=== PATIENT | male | born 1990 | race Caucasian/White ===

== ENCOUNTER → 2020-05-11 11:59 | Outpatient (CLI) | payer BC, SELFPAY ==
--- NOTE | 2020-05-11 12:10 | XR_ITS ---
PROCEDURE: XR ANKLE LT MIN 3V CLINICAL INDICATION: SPRAIN OF LEFT ANKLE Pain COMPARISON: No exams were available for comparison FINDINGS: Mild soft tissue swelling at the lateral malleolar region. No fracture or dislocation. IMPRESSION: Soft tissue swelling otherwise negative Dictated by: Maxwell Patel MD 05/11/2020 18:38 Maxwell Patel MD in [facility] 05/11/2020 18:38
== END ==
PROVIDERS: PCP Internal Medicine Adolescent Medicine; Visit Provider Internal Medicine Adolescent Medicine
DX: S93.402A Sprain of unspecified ligament of left ankle, initial encounter (principal)
CPT/HCPCS: 73610

== ENCOUNTER 2020-06-06 16:30 | Outpatient (RCR) | payer BC, SELFPAY ==
--- NOTE | 2020-05-20 10:16 | HMH.PTOPEV ---
PT Outpatient Evaluation Rehab PT Outpatient Evaluation Start: 05/20/20 09:36 Freq: Status: Active Protocol: Document 05/20/20 10:07 [facility] (Rec: 05/20/20 10:16 PHOVIVIANA [id number]) Electronically Signed By Jamal Powell, PT 05/20/20 10:07 Outpatient Therapy Subjective History Subjective History Pt is 29 yowm who presents with L ankle pain and swelling x ~ 2-3 wks after ankle sprain while playing basketball. X-rays were negative for fx. Pt reports pain with walking and increased edema with L LE in dependent position. He reports tenderness in the L Lateral ankle as well. PMH: HTN. Chief Complaint Pain,Stiff,Swelling Symptom Type Ache,Throb Symptoms Relieved By Rest/Positioning,Ice Symptoms Aggravated By Physical Activity,Walking Prior Functional Limitations None Current Functional Limitations Recreation Activity,Walking Symptom Description Constant but Variable Level of pain today (0-10) 6 Pain scale - at its worst (0-10) 6 Ankle/Foot Eval Gait Observation General Gait Pattern Observation Antalgic Gait Palpation Tenderness left Ankle/Foot Palpation Findings Tenderness ATF TTP positive PTF TTP negative CF TTP positive Deltoid ligament TTP negative ROM Ankle/Foot Dorsiflexion w/Knee Extended 0-5 Active Range Motion (degrees) Ankle/Foot Plantar Flexion Active Range 0-40 of Motion (degrees) Ankle/Foot Eversion Active Range of 0-15 Motion (degrees) Ankle/Foot Inversion Active Range of 0-30 Motion (degrees) Ankle/Foot ROM Limitations Pain MMT Ankle Dorsiflexion Strength Grade 4 Good Ankle Plantarflexion Strength Grade 4 Good Foot Eversion Strength Grade 4 Good Foot Inversion Strength Grade 4 Good Ankle Dorsiflexors Muscle Tone Normal Description Special Tests Ankle Anterior Drawer Test Negative Left,Negative Right Ankle Eversion Test Negative Left,Negative Right Talar Tilt Test Negative Right,Positive Left Ankle Inversion (supination) Test Negative Right,Positive Left Outpatient Therapy Assessment Impairments Problems/Impairmments Palpation Tenderness,Impaired Range of Motion,Impaired Strength,Impaired Endurance, Impaired Gait Pattern,Impaired Walking,Impaired Standing,
== END 2020-06-06 16:35 | disposition home or self-care (01) ==
LOC: PT 16:30
PROVIDERS: PCP Internal Medicine Adolescent Medicine; Visit Provider Internal Medicine Adolescent Medicine
DX: S93.402A Sprain of unspecified ligament of left ankle, initial encounter (principal)
CPT/HCPCS: 97010; 97014; 97016; 97033; 97035; 97110; 97112; 97140; 97163; 97760; G0283

== ENCOUNTER → 2022-04-28 07:45 | Outpatient (CLI) | payer BC, SELFPAY ==
--- NOTE | 2022-04-28 07:50 | US_ITS ---
FINAL REPORT CLINICAL HISTORY: ABD PAIN,DIARRHEA FINDINGS: Sonographic images of the right upper quadrant were obtained. The pancreas is obscured. The liver has increased echogenicity consistent with mild fatty infiltration. The gallbladder appears normal without evidence of gallstones.There is no evidence of biliary ductal dilatation.The common duct measures 3 mm. Limited images of the right kidney are unremarkable. IMPRESSION: Fatty liver. Otherwise unremarkable right upper quadrant ultrasound. Reviewed, Interpreted and Dictated by Daron Reed III, MD Transcribed by Kathy Rosas Authenticated and [facility]
== END ==
PROVIDERS: PCP Internal Medicine Adolescent Medicine; Visit Provider Nurse Practitioner Family
DX: R10.10 Upper abdominal pain, unspecified (principal); R11.10 Vomiting, unspecified; R19.7 Diarrhea, unspecified
CPT/HCPCS: 76705

== ENCOUNTER → 2022-12-25 11:20 | Outpatient (CLI) | payer BC, SELFPAY ==
[2022-12-25 12:12] LABS: Basophils % 0.5 % (0.1-2.0); Eosinophils # 0.2 K/mm3 (0.0-0.4); Hematocrit 45.1 % (42.0-52.0); Hemoglobin 14.9 g/dL (14.1-18.0); Lymphocytes % 28.7 % (10-50); Mean Corpuscular Hemoglobin 30.1 pg (27.0-31.2); Mean Corpuscular Volume 91.4 fl (80-94); Monocytes # 0.4 K/mm3 (0.1-1.0); Monocytes % 5.8 % (1.7-9.3); Neutrophils # 4.3 K/mm3 (1.8-7.8); Platelet Count 270 K/mm3 (142-424); Red Blood Count 4.94 M/mm3 (4.60-6.20); Red Cell Distribution Width 13.3 % (11.5-17.5); White Blood Count 6.9 K/mm3 (4.8-10.8)
[2022-12-25 12:20] LABS: Chloride 98 mmol/L (98-107)
[2022-12-25 12:21] LABS: Potassium 3.6 mmoL/L (3.5-5.1); Sodium 139 mmol/L (136-145)
[2022-12-25 12:23] LABS: Alanine Aminotransferase 33 U/L (12-78); Alkaline Phosphatase 44 U/L (38-126); Anion Gap 16.6 mEq/L (5-15); Aspartate Amino Transferase 32 U/L (17-59); Bilirubin,Total 0.7 mg/dl (0.2-1.3); Blood Urea Nitrogen 9 mg/dl (9-20); Carbon Dioxide 28 mmol/L (22.0-30.0); Estimated Glomerular Filt Rate 87 ml/min (>60); GFR (African American) 105 ML/MIN (>60)
[2022-12-25 12:24] LABS: Albumin Level 4.2 g/dl (3.5-5.0); Albumin/Globulin Ratio 1.6 (1.1-1.8); Calcium 8.8 mg/dl (8.4-10.2); Globulin 2.6 g/dL (1.3-3.2); Glucose 91 mg/dl (74-100); Total Protein,Serum 6.8 g/dl (6.3-8.2)
[2022-12-25 12:55] LABS: Erythrocyte Sedimentation Rate 7 mm/hr (0-15)
[2022-12-25 13:57] LABS: Adenovirus F 40/41, stool Not Detected (NotDetected); Astrovirus Not Detected (NotDetected); Campylobacter Not Detected (NotDetected); Clostridium Difficile A/B, PCR Not Detected (NotDetected); Cryptosporidium Not Detected (NotDetected); Cyclospora Cayetanesis Not Detected (NotDetected); Entamoeba histolytica Not Detected (NotDetected); Enteroaggregative E coli Not Detected (NotDetected); Enteropathogenic E coli Not Detected (NotDetected); Enterotoxigenic E coli Not Detected (NotDetected); Giardia lamblia Not Detected (NotDetected); Norovirus Not Detected (NotDetected); Plesimonas Shigalloides, PCR Not Detected (NotDetected); Rotavirus A Not Detected (NotDetected); Salmonella, PCR Not Detected (NotDetected); Sapovirus Not Detected (NotDetected); Shiga-like toxin E coli Not Detected (NotDetected); Shigella Enterovasive E coli Not Detected (NotDetected); Vibrio Cholerae Not Detected (NotDetected); Vibrio, PCR Not Detected (NotDetected); Yersinia Entercolitica, PCR Not Detected (NotDetected)
== END ==
PROVIDERS: PCP Nurse Practitioner Family; Visit Provider Nurse Practitioner Family
DX: R10.32 Left lower quadrant pain (principal); K52.9 Noninfective gastroenteritis and colitis, unspecified; R19.7 Diarrhea, unspecified
CPT/HCPCS: 36415; 80053; 85025; 85651; 87507

== ENCOUNTER 2024-01-30 05:38 | Emergency (ER) | payer BC, SELFPAY ==
[2024-01-30] VITALS (7 sets, daily range): BP systolic 119–141; BP diastolic 71–90; PULSE 102–110; RESP 16–18; TEMP 36.7; O2SAT 94–97; BMI 30.8
--- NOTE | 2024-01-30 05:46 | CT_ITS ---
PROCEDURE INFORMATION: Exam: CT Abdomen And Pelvis With Contrast Exam date and time: 01/30/2024 6:07 AM Age: 33 years old Clinical indication: Abdominal pain; Additional info: Rlq abd pain, ttp, emesis TECHNIQUE: Imaging protocol: Computed tomography of the abdomen and pelvis with contrast. Radiation optimization: All CT scans at this facility use at least one of these dose optimization techniques: automated exposure control; mA and/or kV adjustment per patient size (includes targeted exams where dose is matched to clinical indication); or iterative reconstruction. Contrast material: ISOVUE; Contrast volume: 75 ml; Contrast route: IV; COMPARISON: US ABDOMEN LIMITED 04/28/2022 8:02 AM FINDINGS: Lungs: Calcified granuloma in the right lower lobe. The lung bases are otherwise clear. Diaphragm: Small hiatal hernia. Liver: Normal. No mass. Gallbladder and bile ducts: Normal. No calcified stones. No ductal dilation. Pancreas: Normal. No ductal dilation. Spleen: Normal. No splenomegaly. Adrenal glands: Normal. No mass. Kidneys and ureters: Normal. No hydronephrosis. Stomach and bowel: Multiple loops of fluid filled, nondilated small bowel and colon. Subtle hyperemic bowel hope. Overall findings are suspicious for gastroenteritis. Appendix: The appendix is visualized and appears normal. Intraperitoneal space: Unremarkable. No free air. No significant fluid collection. Vasculature: Unremarkable. No abdominal aortic aneurysm. Lymph nodes: Unremarkable. No enlarged lymph nodes. Urinary bladder: Unremarkable as visualized. Reproductive: Unremarkable as visualized. Bones/joints: Unremarkable. No acute fracture. Soft tissues: Gynecomastia. IMPRESSION: 1. The appendix is visualized and appears normal. 2. Multiple loops of fluid filled, nondilated small bowel and colon. Subtle hyperemic bowel hope. Overall findings are suspicious for gastroenteritis.
--- NOTE | 2024-01-30 05:46 | ED_ITS ---
Discharge Plan Disposition Patient Disposition: Home, Self-Care Prescriptions Prescriptions: New ondansetron 4 mg tablet,disintegrating 4 mg PO Q8H PRN (Reason: nausea and vomiting) 4 Days Qty: 12 0RF No Action allopurinol 100 mg Tablet 100 mg PO BID colchicine 0.6 mg Tablet 0.6 mg PO DAILYP PRN (Reason: gout) Activity Restrictions/Add. Instructions Additional Instructions/Restrictions: At this time it was felt you are safe to be discharged home. If new or worsening symptoms please do not hesitate to return the emergency department. Please take your medications as prescribed. Clinical Impressions Clinical Impression: Gastroenteritis Instructions Patient Instructions: DI for Viral Gastroenteritis -- Adult Discharge ED Provider: Delta Roberson General Adult HPI <Se Tiwari MD - Last Filed: 01/30/24 06:50> General Chief complaint: Nausea/Vomiting/Diarrhea Stated complaint: nausea/vomiting Time Seen by Provider: 01/30/24 05:39 History of Present Illness HPI narrative: 33-year-old male with history of gout and is currently on allopurinol and colchicine presents to the ER for concerns of abdominal pain and emesis that started last night around 11 PM. Patient called EMS due to his symptoms. He was able to ambulate out to EMS. During transport they administered Zofran which reportedly took his nausea from an 8 down to a 6. Patient reports multiple episodes of emesis, nonbloody, nonbilious. He reports his diarrhea has not been bloody or melanotic. No known fevers. No known drug allergies. He vapes but denies alcohol or illicit drug use. No history of abdominal surgeries. Related Data Home Medications Medication Instructions Recorded Confirmed allopurinol 100 mg tablet 100 mg PO BID 01/30/24 01/30/24 colchicine 0.6 mg tablet 0.6 mg PO DAILYP PRN gout 01/30/24 01/30/24 Previous Rx's Medication Instructions Recorded ondansetron 4 mg disintegrating 4 mg PO Q8H PRN nausea and 01/30/24 tablet vomiting 4 days #12 tabs Allergies Allergy/AdvReac Type Severity Reaction Status Date / Time No Known Allergies Allergy Unverified 08/03/17 15:11 PFSH <Se Tiwari MD - Last Filed: 01/30/24 06:50> [facility] Disclaimer: The information contained in this section may have been updated after the patient was seen, as this information can be updated by other users. Social History (Updated 01/30/24 @ 06:50 by Se Tiwari MD) Smoking Status: Current every day smoker alcohol intake: never current occupational status: other Travel in the last 8 weeks: None <Se Tiwari MD - Last Filed: 01/30/24 06:50> ROS Obtained: Yes All systems reviewed & no additional complaints except as documented Constitutional Constitutional: Denies chills, Denies fever(s), Denies headache(s) and Denies weakness Eyes Eyes: Denies change in vision ENT Ears, Nose, Mouth, and Throat: Denies dizziness, Denies headache(s), Denies nasal congestion and Denies sore throat Cardiovascular Cardiovascular: Denies chest pain, Denies dyspnea and Denies leg edema Respiratory Respiratory: Denies cough and Denies dyspnea Gastrointestinal Gastrointestingal: Reports abdominal pain, diarrhea, nausea and vomiting; Denies constipation Genitourinary Male Genitourinary: Denies difficulty urinating Musculoskeletal Musculoskeletal: Denies arthralgias, Denies myalgias, Denies numbness and Denies tingling Integumentary/Breasts Skin/Breast: Denies change in pigmentation Neurologic Neurologic: Denies dizziness, Denies headache(s), Denies numbness, Denies tingling and Denies weakness Physical Exam <Se Tiwari MD - Last Filed: 01/30/24 06:50> General General appearance: alert and in no apparent distress Head Head exam: atraumatic and normocephalic Eye Eye exam: Present PERRL and EOMI ENT ENT exam: Present mucous membranes moist Neck Neck exam: Present normal inspection and full ROM Chest Chest inspection: Present symmetric chest wall rise Respiratory Respiratory exam: Present normal lung sounds bilaterally; Absent respiratory distress, wheezes or stridor Cardiovascular Cardiovascular exam: Present regular rate and normal rhythm Abdominal Exam Abdominal exam: Present soft and tenderness; Absent distention, guarding or rebound Extremities Exam Extremities exam: Present full ROM Neurological Exam Neurological exam: Present alert and oriented X3; Absent motor sensory deficit Psychiatric Psychiatric exam: Present normal affect and normal mood Skin Skin exam: Present warm and dry Medical Decision Making <Se Tiwari MD - Last Filed: 01/30/24 06:50> Ben Inquiry Pt receiving controlled substance: No Vital Signs: 01/30/24 05:38 01/30/24 05:45 01/30/24 06:15 Temperature 98.1 F Temperature Source Oral Pulse Rate 110 H 103 H Pulse Rate [Right] 108 H Respiratory Rate 18 18 16 Blood Pressure 132/87 124/90 Blood Pressure [Right Arm] 132/87 Blood Pressure Mean [Right Arm] 102 Blood Pressure Position [Right Arm] Supine 02 Sat by Pulse Oximetry 97 97 95 Oxygen Delivery Method Room Air Room Air Room Air 01/30/24 06:30 01/30/24 07:09 01/30/24 08:00 Temperature Temperature Source Pulse Rate 109 H 103 H 102 H Pulse Rate [Right] Respiratory Rate 18 Blood Pressure 132/85 128/82 119/71 Blood Pressure [Right Arm] Blood Pressure Mean [Right Arm] Blood Pressure Position [Right Arm] 02 Sat by Pulse Oximetry 96 96 94 L Oxygen Delivery Method Room Air Room Air Room Air Lab Data Lab Results 01/30/24 05:25: WBC 15.1 H, RBC 5.39, Hgb 16.7, Hct 49.7, MCV 92.2, MCH 31.0, MCHC 33.7, RDW 13.9, Plt Count 312, MPV 8.3, Neut % (Auto) 90.6 H, Lymph % (Auto) 2.6 L, Jerome % (Auto) 5.5, Eos % (Auto) 0.9, Baso % (Auto) 0.4, Neut # (Auto) 13.7 H, Lymph # (Auto) 0.4 L, Jerome # (Auto) 0.8, Eos # (Auto) 0.1, Baso # (Auto) 0.1, Total Counted 100, Neutrophils % (Manual) 89 H, Lymphocytes % (Manual) 5 L, Monocytes % (Manual) 6, Platelet Estimate Normal, RBC Morphology Normal, Sodium 142, Potassium 4.1, Chloride 110 H, Carbon Dioxide 15 L, Anion Gap 21.1 H, BUN 17, Creatinine 1.30 H, Estimated Creat Clear 113, Estimated GFR 64, Est GFR ( Amer) 77, Glucose 162 H, Calcium 10.0, Total Bilirubin 1.2, AST 43, ALT 49, Alkaline Phosphatase 75, Total Protein 9.0 H D, Albumin 5.2 H, G lobulin 3.8 H, Albumin/Globulin Ratio 1.4, Lipase 87 01/30/24 06:00: Lactate 3.1 H 01/30/24 05:25 01/30/24 05:25 Orders (Tests/Meds): ED MEDICATIONS Generic Name Dose Route Start Last Admin Trade Name Freaamir PRN Reason Stop Dose Admin Sodium Chloride 10 ml 01/30/24 06:05 01/30/24 06:06 Sodium Chloride 0.9% 10ml Syr (Rad Only) IV 02/29/24 06:04 10 ml NEEDED PRN Administration Maintain IV Site Discontinued Medications Generic Name Dose Route Start Last Admin Trade Name Freq PRN Reason Stop Dose Admin Acetaminophen 1,000 mg 01/30/24 05:46 01/30/24 05:50 Acetaminophen 1,000mg/100ml Vial IV 01/30/24 05:47 1,000 mg ONCE ONE Administration Lactated Ringer's 1,000 mls @ 999 mls/hr 01/30/24 05:43 01/30/24 05:48 Lactated Ringer's 1000 Ml Bag IV 01/30/24 06:43 999 mls/hr .Q1H1M ONE Administration Iopamidol 75 ml 01/30/24 06:05 01/30/24 06:06 Iopamidol-370 (76%);100ml Bottle IV 01/30/24 06:06 75 ml ONCE ONE Administration ORDERS Category Date Time Status CT abdomen pelvis w con Stat Cat Scan 01/30/24 05:46 Completed CBC w/Auto Diff [Complete Blood Count Auto Diff] Stat Lab 01/30/24 05:25 Completed CMP [Comprehensive Metabolic Panel] Stat Lab 01/30/24 05:25 Completed Lactic Acid Stat Lab 01/30/24 06:00 Completed Lipase Stat Lab 01/30/24 05:25 Completed Medical Decision Narrative: In summary, this 33-year-old male presents to the emergency department today with abdominal pain, vomiting, diarrhea that started approximately 6 hours prior to arrival. On initial evaluation patient is hemodynamically stable, afebrile, cardiopulmonary exam is reassuring, patient has tenderness to palpation mildly throughout the abdomen, but has significant tenderness in his right lower quadrant. No rebound or guarding. Differential diagnosis includes but is not limited to appendicitis, viral syndrome, electrolyte abnormality, dehydration, pancreatitis, lactic acidosis. Based on these concerns, serum labs and CT imaging of the abdomen have been ordered. Patient is receiving IV fluids and IV acetaminophen. He already received Zofran from EMS with gradual improvement of his nausea. Labs personally reviewed demonstrate leukocytosis with WBC 15.1, neutrophil predominance, sodium and potassium normal, mild hyperchloremia, slight elevation in creatinine at 1.3, lipase normal at 87 which is reassuring against pancreatitis, lactic elevated at 3.1, patient is receiving IV fluids. CT abdomen pelvis personally interpreted does not demonstrate findings of bowel obstruction, questionable mild inflammatory changes in the right lower quadrant. See radiology read for final interpretation. On reassessment patient continues to be stable. His pain and nausea are controlled at this time. Patient handed off to Dr. Roberson at physician shift change for further management and disposition pending repeat lactic and results of CT abdomen pelvis. <Delta Roberson MD - Last Filed: 01/30/24 08:48> Vital Signs: 01/30/24 05:38 01/30/24 05:45 01/30/24 06:15 Temperature 98.1 F Temperature Source Oral Pulse Rate 110 H 103 H Pulse Rate [Right] 108 H Respiratory Rate 18 18 16 Blood Pressure 132/87 124/90 Blood Pressure [Right Arm] 132/87 Blood Pressure Mean [Right Arm] 102 Blood Pressure Position [Right Arm] Supine 02 Sat by Pulse Oximetry 97 97 95 Oxygen Delivery Method Room Air Room Air Room Air 01/30/24 06:30 01/30/24 07:09 01/30/24 08:00 Temperature Temperature Source Pulse Rate 109 H 103 H 102 H Pulse Rate [Right] Respiratory Rate 18 Blood Pressure 132/85 128/82 119/71 Blood Pressure [Right Arm] Blood Pressure Mean [Right Arm] Blood Pressure Position [Right Arm] 02 Sat by Pulse Oximetry 96 96 94 L Oxygen Delivery Method Room Air Room Air Room Air Lab Data Lab Results 01/30/24 05:25: WBC 15.1 H, RBC 5.39, Hgb 16.7, Hct 49.7, MCV 92.2, MCH 31.0, MCHC 33.7, RDW 13.9, Plt Count 312, MPV 8.3, Neut % (Auto) 90.6 H, Lymph % (Auto) 2.6 L, Jerome % (Auto) 5.5, Eos % (Auto) 0.9, Baso % (Auto) 0.4, Neut # (Auto) 13.7 H, Lymph # (Auto) 0.4 L, Jerome # (Auto) 0.8, Eos # (Auto) 0.1, Baso # (Auto) 0.1, Total Counted 100, Neutrophils % (Manual) 89 H, Lymphocytes % (Manual) 5 L, Monocytes % (Manual) 6, Platelet Estimate Normal, RBC Morphology Normal, Sodium 142, Potassium 4.1, Chloride 110 H, Carbon Dioxide 15 L, Anion Gap 21.1 H, BUN 17, Creatinine 1.30 H, Estimated Creat Clear 113, Estimated GFR 64, Est GFR ( Amer) 77, Glucose 162 H, Calcium 10.0, Total Bilirubin 1.2, AST 43, ALT 49, Alkaline Phosphatase 75, Total Protein 9.0 H D, Albumin 5.2 H, G lobulin 3.8 H, Albumin/Globulin Ratio 1.4, Lipase 87 01/30/24 06:00: Lactate 3.1 H Orders (Tests/Meds): ED MEDICATIONS Generic Name Dose Route Start Last Admin Trade Name Freq PRN Reason Stop Dose Admin Sodium Chloride 10 ml 01/30/24 06:05 01/30/24 06:06 Sodium Chloride 0.9% 10ml Syr (Rad Only) IV 02/29/24 06:04 10 ml NEEDED PRN Administration Maintain IV Site Discontinued Medications Generic Name Dose Route Start Last Admin Trade Name Freq PRN Reason Stop Dose Admin Acetaminophen 1,000 mg 01/30/24 05:46 01/30/24 05:50 Acetaminophen 1,000mg/100ml Vial IV 01/30/24 05:47 1,000 mg ONCE ONE Administration Lactated Ringer's 1,000 mls @ 999 mls/hr 01/30/24 05:43 01/30/24 05:48 Lactated Ringer's 1000 Ml Bag IV 01/30/24 06:43 999 mls/hr .Q1H1M ONE Administration Iopamidol 75 ml 01/30/24 06:05 01/30/24 06:06 Iopamidol-370 (76%);100ml Bottle IV 01/30/24 06:06 75 ml ONCE ONE Administration ORDERS Category Date Time Status CT abdomen pelvis w con Stat Cat Scan 01/30/24 05:46 Completed CBC w/Auto Diff [Complete Blood Count Auto Diff] Stat Lab 01/30/24 05:25 Completed CMP [Comprehensive Metabolic Panel] Stat Lab 01/30/24 05:25 Completed Lactic Acid Stat Lab 01/30/24 06:00 Completed Lipase Stat Lab 01/30/24 05:25 Completed Medical Decision Narrative: In summary, this 33-year-old male presents to the emergency department today with abdominal pain, vomiting, diarrhea that started approximately 6 hours prior to arrival. On initial evaluation patient is hemodynamically stable, afebrile, cardiopulmonary exam is reassuring, patient has tenderness to palpation mildly throughout the abdomen, but has significant tenderness in his right lower quadrant. No rebound or guarding. Differential diagnosis includes but is not limited to appendicitis, viral syndrome, electrolyte abnormality, dehydration, pancreatitis, lactic acidosis. Based on these concerns, serum labs and CT imaging of the abdomen have been ordered. Patient is receiving IV fluids and IV acetaminophen. He already received Zofran from EMS with gradual improvement of his nausea. Labs personally reviewed demonstrate leukocytosis with WBC 15.1, neutrophil predominance, sodium and potassium normal, mild hyperchloremia, slight elevation in creatinine at 1.3, lipase normal at 87 which is reassuring against pancreatitis, lactic elevated at 3.1, patient is receiving IV fluids. CT abdomen pelvis personally interpreted does not demonstrate findings of bowel obstruction, questionable mild inflammatory changes in the right lower quadrant. See radiology read for final interpretation. On reassessment patient continues to be stable. His pain and nausea are controlled at this time. Patient handed off to Dr. Roberson at physician shift change for further management and disposition pending repeat lactic and results of CT abdomen pelvis. Delta Roberson: Upon assumption of care patient was hemodynamically stable, nonspecific leukocytosis of 15.1, no PAULINE or critical electrolyte abnormality although mildly elevated creatinine and lactate which is being repleted with crystalloid prior to my assumption of care. CT imaging of abdomen pelvis shows normal appendix, multiple loops of fluid-filled nondilated small bowel and colon with hyperemic bowel hope suspicious for gastroenteritis. Patient does have symptoms align up with this. Upon repeat evaluation patient was tolerating p.o. at bedside and is appropriate for discharge at this time. Patient will be discharged with a course of Zofran was given return precautions. Critical Care <Se Tiwari MD - Last Filed: 01/30/24 06:50> Critical Care Time Critical Care Time: No
[2024-01-30] MEDS: LACTATED RINGERS 1000ML 1,000 ML 999 ML IV (05:48)
[2024-01-30 05:50] LABS: Basophils # 0.1 K/mm3 (0-0.2); Basophils % 0.4 % (0.1-2.0); Eosinophils # 0.1 K/mm3 (0.0-0.4); Eosinophils % 0.9 % (0.1-12.0); Hematocrit 49.7 % (42.0-52.0); Hemoglobin 16.7 g/dL (14.1-18.0); Lymphocytes # 0.4 K/mm3 (0.7-4.5); Lymphocytes % 2.6 % (10-50); Mean Corpuscular HGB Conc 33.7 g/dL (31.8-35.4); Mean Corpuscular Volume 92.2 fl (80-94); Mean Platelet Volume 8.3 fl (7.4-10.4); Monocytes # 0.8 K/mm3 (0.1-1.0); Monocytes % 5.5 % (1.7-9.3); Neutrophils # 13.7 K/mm3 (1.8-7.8); Neutrophils % 90.6 % (37.0-80.0); Platelet Count 312 K/mm3 (142-424); Red Blood Count 5.39 M/mm3 (4.60-6.20); Red Cell Distribution Width 13.9 % (11.5-17.5); White Blood Count 15.1 K/mm3 (4.8-10.8)
[2024-01-30] MEDS: ACETAMINOPHEN 1,000MG/100ML VIAL 1000 MG IV (05:50)
[2024-01-30 05:54] LABS: Chloride 110 mmol/L (98-107)
[2024-01-30 05:55] LABS: Potassium 4.1 mmoL/L (3.5-5.1); Sodium 142 mmol/L (136-145)
[2024-01-30 05:57] LABS: Alanine Aminotransferase 49 U/L (12-78); Alkaline Phosphatase 75 U/L (38-126); Anion Gap 21.1 mEq/L (5-15); Aspartate Amino Transferase 43 U/L (17-59); Bilirubin,Total 1.2 mg/dl (0.2-1.3); Blood Urea Nitrogen 17 mg/dl (9-20); Carbon Dioxide 15 mmol/L (22.0-30.0); Creatinine Clearance Estimated 113 mL/min (50-200); Estimated Glomerular Filt Rate 64 ml/min (>60); GFR (African American) 77 ML/MIN (>60); Lipase 87 U/L (23-300)
[2024-01-30 05:58] LABS: Albumin Level 5.2 g/dl (3.5-5.0); Albumin/Globulin Ratio 1.4 (1.1-1.8); Globulin 3.8 g/dL (1.3-3.2); Glucose 162 mg/dl (74-100); MANUAL DIFFERENTIAL MANUAL DIFFERENTIAL (MANUAL DIFF)
[2024-01-30] MEDS: SODIUM CHLORIDE 0.9% 10ML SYR (RAD ONLY) 10 ML IV (06:06)
[2024-01-30] MEDS: IOPAMIDOL-370 (76%);100ML BOTTLE 75 ML IV (06:06)
[2024-01-30 06:15] LABS: Lymphocytes % 5 % (10-50); Monocytes % 6 % (2-9); Neutrophils % 89 % (42-76); Platelet Estimate Normal; RBC Morphology Normal; Total Cells Counted 100
[2024-01-30 06:18] LABS: Lactic Acid 3.1 mmol/L (0.7-2.1)
--- NOTE | 2024-01-30 07:22 | PC.NURSE ---
Rounded on pt. Pt requested a drink. Staff notified pt we are unable to provide a drink until we have CT results. PT voiced understanding. No other needs voiced at this time.
--- NOTE | 2024-01-30 07:58 | PC.NURSE ---
Radiology is going to chat with [facility] to request ct scan
--- NOTE | 2024-01-30 08:45 | PC.NURSE ---
DR TUBBS AT BEDSIDE TO REEVALUATE PT
[2024-01-30 10:07] LABS: Reflex Lactic Add Lactic Reflex
== END 2024-01-30 09:03 | disposition home or self-care (01) ==
PROVIDERS: Emergency Medicine; Emergency Provider Emergency Medicine; PCP Internal Medicine Adolescent Medicine
DX: K52.9 Noninfective gastroenteritis and colitis, unspecified (principal); R74.02 Elevation of levels of lactic acid dehydrogenase [LDH]; R11.2 Nausea with vomiting, unspecified; D72.829 Elevated white blood cell count, unspecified; F17.210 Nicotine dependence, cigarettes, uncomplicated
CPT/HCPCS: 74177; 80053; 83605; 83690; 85007; 85025; 96361; 96374; 99284; J0131; J7120; Q9967

== ENCOUNTER 2024-05-02 17:16 | Emergency (ER) | payer BC, SELFPAY ==
--- NOTE | 2024-05-02 17:51 | EXP.UTC ---
Discharge Plan Disposition Patient Disposition: Home, Self-Care Condition: Good Prescriptions Prescriptions: New prednisone 10 mg tablet 10 mg PO BID 4 Days Qty: 8 0RF polymyxin B sulf-trimethoprim 10,000 unit- 1 mg/mL drops 1 drp Eye-Both Q3H 7 Days Qty: 10 0RF Rx Instructions: while awake; do not exceed 6 doses in 24 hours No Action allopurinol 100 mg Tablet 100 mg PO BID colchicine 0.6 mg Tablet 0.6 mg PO DAILYP PRN (Reason: gout) ondansetron 4 mg tablet,disintegrating 4 mg PO Q8H PRN (Reason: nausea and vomiting) 4 Days Qty: 12 0RF Referrals Follow up/Referrals: Agustin De Los Santos MD [Primary Care Provider] - See instructions Activity Restrictions/Add. Instructions Additional Instructions/Restrictions: Drink plenty of fluids. Take tylenol or ibuprofen for pain or fever. Take the medications as directed. Follow up with your regular doctor. GO TO THE ER FOR ANY WORSENING SYMPTOMS Clinical Impressions Clinical Impression: Strep throat, Conjunctivitis Instructions Patient Instructions: Strep Throat, DI for Strep Throat Print Language Print Language: [place] Discharge ED Provider: Kenn Posada [facility] [place] HPI General Stated complaint: poss pink eye, sore throat, cough Time Seen by Provider: 05/02/24 17:51 History of Present Illness Provider Complaint: He c/o worsening sore throat for the past 2 days. He also has bilateral eye redness with discharge and crusting for the past 4 days. He denies any eye injury or foreign body. Related Data Home Medications ?Medication ?Instructions ?Recorded ?Confirmed allopurinol 100 mg tablet 100 mg PO BID 01/30/24 01/30/24 colchicine 0.6 mg tablet 0.6 mg PO DAILYP PRN gout 01/30/24 01/30/24 Previous Rx's ?Medication ?Instructions ?Recorded ondansetron 4 mg disintegrating 4 mg PO Q8H PRN nausea and 01/30/24 tablet vomiting 4 days #12 tabs polymyxin B sulfate 10,000 1 drp Eye-Both Q3H 7 days #10 mL 05/02/24 unit-trimethoprim 1 mg/mL eye drops prednisone 10 mg tablet 10 mg PO BID 4 days #8 tabs 05/02/24 Allergies Allergy/AdvReac Type Severity Reaction Status Date / Time No Known Allergies Allergy Unverified 08/03/17 15:11 [facility] Disclaimer: The information contained in this section may have been updated after the patient was seen, as this information can be updated by other users. Social History (Updated 01/30/24 @ 06:50 by Se Tiwari MD) Smoking Status: Current every day smoker alcohol intake: never current occupational status: other Travel in the last 8 weeks: None ROS Obtained: Yes All systems reviewed & no additional complaints except as documented Constitutional Constitutional: Reports chills and Reports fever(s) Eyes Eyes: Reports as per HPI, Denies decreased night vision and Reports eye discharge ENT Ears, Nose, Mouth, and Throat: Reports as per HPI Cardiovascular Cardiovascular: Denies chest pain Respiratory Respiratory: Denies chest congestion and Reports cough Gastrointestinal Gastrointestingal: Reports nausea; Denies abdominal pain, constipation, cramping, diarrhea or vomiting Musculoskeletal Musculoskeletal: Denies arthralgias Integumentary/Breasts Skin/Breast: Denies rash Neurologic Neurologic: Denies paresthesias Physical Exam General General appearance: alert and in no apparent distress Head Head exam: atraumatic, normocephalic and normal inspection Eye Eye exam: Present PERRL, EOMI, conjunctival redness, conjunctival injection and discharge ENT ENT exam: Present mucous membranes moist and normal external ear exam Expanded ENT Exam TM/Canal exam: Bilateral TM: erythema and bulging Nose exam: Absent sinus tenderness Mouth exam: Present normal external inspection; Absent drooling Teeth exam: Present normal inspection Throat exam: Present tonsillar erythema, tonsillomegaly and tonsillar exudate Neck Neck exam: Present normal inspection, full ROM and trachea midline; Absent tenderness, meningismus or lymphadenopathy Chest Chest inspection: Present normal inspection and symmetric chest wall rise; Absent tenderness Respiratory Respiratory exam: Present normal lung sounds bilaterally; Absent respiratory distress, wheezes, stridor or accessory muscle use Cardiovascular Cardiovascular exam: Present regular rate and normal rhythm; Absent systolic murmur or diastolic murmur Abdominal Exam Abdominal exam: Present soft and normal bowel sounds; Absent distention, tenderness, guarding, rebound or rigidity Extremities Exam Extremities exam: Present normal inspection and normal capillary refill; Absent calf tenderness Back Exam Back exam: Present normal inspection and full ROM; Absent tenderness, CVA tenderness (R) or CVA tenderness (L) Neurological Exam Neurological exam: Present alert, oriented X3 and CN II-XII intact Psychiatric Psychiatric exam: Present normal affect and normal mood Skin Skin exam: Present warm, dry, intact and normal color Medical Decision Making Medical Records Medical records reviewed: No I reviewed the patient's medical records. Screening: Per USPSTF and CDC recommendations, given the prevalence of disease in our region, it is our hospital?s policy to screen for HIV and viral Hepatitis for all patients aged 18 and over and those with ongoing risk factors. Ben Inquiry Pt receiving controlled substance: No Lab Data Lab results reviewed: Yes I reviewed the patient's lab results.
[2024-05-02 17:58] VITALS: BP 176/112; PULSE 102; RESP 16; TEMP 37.4; O2SAT 97; BMI 33.3
[2024-05-02 18:06] LABS: UTC Strep Screen (Rapid) Positive (Negative)
[2024-05-02] MEDS: PENICILLIN G BENZATHINE 1,200,000 UNITS/2ML SYRINGE 1200000 UNIT IM (18:27)
[2024-05-02] MEDS: DEXAMETHASONE 4MG/ML 1ML VIAL 8 MG IM (18:27)
[2024-05-02 18:54] VITALS: BP 176/112; PULSE 102; RESP 16; TEMP 37.4; O2SAT 97
== END 2024-05-02 18:55 | disposition home or self-care (01) ==
PROVIDERS: Emergency Provider Nurse Practitioner Family; PCP Internal Medicine Adolescent Medicine
DX: J02.0 Streptococcal pharyngitis (principal); H10.33 Unspecified acute conjunctivitis, bilateral; R07.0 Pain in throat
CPT/HCPCS: 87880; 96372; 99204; 99212; G0463; J0561; J1100